=== PATIENT | male | born 1960 | race Caucasian/White ===

== ENCOUNTER → 2017-10-24 | Outpatient (CLI) | payer BC ==
--- NOTE | 2017-10-24 22:41 | MR ---
EXAMINATION TYPE: MR brain wo con DATE OF EXAM: 10/24/2017 COMPARISON: NONE HISTORY: Transient vision loss right eye TECHNIQUE: Multiplanar, multisequence imaging of the brain and brainstem is performed without IV cont rast. FINDINGS: Diffusion weighted images demonstrate no evidence of a recent infarct or other diffusion abnormality. There is no worrisome extra-axial fluid collection. Ventricles and sulci are felt within normal limit s in size for patient's age. There are scattered foci of T2 hyperintensity seen throughout the superf icial, deep, periventricular white matter. Approximately 40-50 scattered lesions are seen with larges t being confluent periventricular level. Lesions are nonspecific in appearance and distribution are m ost likely on basis of chronic chronic small vessel ischemic change in patient this age. Midline structures demonstrate normal morphology. The craniocervical junction appears within normal limits. Normal vascular flow voids are present. The visualized sinuses are clear and the globes are i ntact. IMPRESSION: 1. No evidence of a recent infarct. 2. Moderate nonspecific white matter changes most likely on basis of product of chronic small vessel ischemic change in patient of this age.
== END | disposition home or self-care (01) ==
LOC: RADMRIMAIN 16:36
PROVIDERS: ATTEND Family Medicine
DX: R90.89 Other abnormal findings on diagnostic imaging of central nervous system (principal); H53.121 Transient visual loss, right eye
CPT/HCPCS: 70551

== ENCOUNTER → 2019-10-16 | Outpatient (CLI) | payer BC ==
--- NOTE | 2019-10-16 13:23 | ECHOS ---
STRESS ECHOCARDIOGRAM LUMASON: Vial INDICATIONS: Chest pain. MEDICATIONS: BASELINE HEART RATE: 70 BASELINE BLOOD PRESSURE: 119/62 MAXIMUM HEART RATE: 162 MAXIMUM BLOOD PRESSURE: 175/70 85% MPHR: 138 100% MPHR: 162 METS: 11.9 MAXIMUM STAGE REACHED: 4 TOTAL EXERCISE TIME: 10:11 CLINICAL INFORMATION: Baseline rhythm is sinus mechanism, rate of 70, normal axis, poor R wave progression. Baseline blood pressure 119/62 mmHg. Patient exercised on a Hernandez protocol for 10 minutes 11 seconds achieving peak rate 162 beats per minute which is equal to 100% maximum predicted heart rate. Peak blood pressure 175/70 mmHg. Test was terminated due to significant fatigue. There was no chest pain. Electrocardiograph monitoring revealed no evidence of diagnostic ischemic ST deviation. FINDINGS: Baseline echocardiogram revealed normal wall thickness and motion. At peak exercise, there was small area of hypokinesis involving the apical and lateral inferior wall with normalization with improvement on the rest images. The rest of the segment showed normal wall thickening and motion. CONCLUSION: 1. Good exercise tolerance with normal electrocardiograph response to exercise. 2. Probably abnormal stress echocardiogram with small area of stress-induced ischemia involving the apical lateral inferior wall. MMODL / IJN: [id number] /
== END | disposition home or self-care (01) ==
LOC: RADNMMAIN 09:49
PROVIDERS: ATTEND Family Medicine
DX: R07.9 Chest pain, unspecified (principal)
CPT/HCPCS: 93351

== ENCOUNTER 2019-11-20 09:18 | Day surgery (SDC) | payer BC ==
[2019-11-18 10:55] VITALS: BMI 28.2
[~2019-11-20 09:18] MED LIST: ALPRAZolam 0.25 MG TAB PO PRN; ALPRAZolam 0.5 MG TAB PO PRN; ASPIRIN 325 MG TAB PO ONE; ATORVASTATIN 80 MG TAB PO ONE; NITROGLYCERIN SL TABS 0.4 MG TAB SUBLINGUAL PRN; SODIUM CHLORIDE 0.9% 1,000 ML in EMPTY BAG 1 BAG IV ONE
[2019-11-20] MEDS ORDERED: SODIUM CHLORIDE 0.9% 1,000 ML IV ONE (09:45)
[2019-11-20] MEDS ORDERED: LIDOCAINE 1% INJ 10MG/ML (20 ML MDV) ONE (10:03)
[2019-11-20] MEDS ORDERED: VERAPAMIL 2.5 MG/ML 2 ML AMP ONE (10:04)
[2019-11-20 10:06] VITALS: TEMP 98
[2019-11-20] MEDS ORDERED: HEPARIN SODIUM 1,000 UN/ML (10ML VL) ONE (10:12)
[2019-11-20] MEDS ORDERED: fentaNYL (PF) 50 MCG/ML 2 ML AMP ONE (10:12)
[2019-11-20] MEDS ORDERED: MIDAZOLAM 2 MG/2 ML VIAL IVP ONE (10:41)
[2019-11-20] MEDS ORDERED: LIDOCAINE 1% INJ 10MG/ML (20 ML MDV) SQ ONE (10:41)
[2019-11-20] MEDS ORDERED: fentaNYL (PF) 50 MCG/ML 2 ML AMP IVP ONE (10:41)
[2019-11-20] MEDS: VERAPAMIL SYRINGE (5 MG/10 ML) INTRAARTER ONE ×2 (10:45→10:53)
[2019-11-20] MEDS ORDERED: HEPARIN SODIUM 1,000 UN/ML (10ML VL) IV ONE (10:47)
[2019-11-20] MEDS ORDERED: IOPAMIDOL-370 125ML BTL INJ ONE (10:53)
[2019-11-20] MEDS ORDERED: RX INFO: IV CONTRAST WAS GIVEN 1 EACH MISC MISCELLANE PRN (11:21)
[2019-11-20] MEDS ORDERED: SODIUM CHLORIDE 0.9% 1,000 ML IV SCH (11:30)
[2019-11-20 14:33] VITALS: PULSE 72; RESP 16
--- NOTE | 2019-11-20 14:57 | CC ---
CARDIAC CATHETERIZATION REPORT DATE OF SERVICE: 11/20/2019 PERFORMING PHYSICIAN: Will Wood MD. PROCEDURE PERFORMED: 1. Selective right and left coronary angiogram. 2. Left heart catheterization. INDICATION: This is a 59-year-old gentleman who was experiencing symptoms of chest discomfort and underwent a stress test and that revealed apical ischemia. Because of that, a heart catheterization was advised. APPROACH: Right radial artery. COMPLICATION: None. LEVEL OF SEDATION: Moderate with sedation length of 16 minutes. PROCEDURE DESCRIPTION: After obtaining informed consent, the patient was brought to cardiac medical laboratory technical officer. The right radial artery was cannulated using micropuncture technique and a micropuncture wire passed easily. Then I placed a [place] sheath. I did give the patient 2 mg of verapamil IA and 10,000 units of heparin IV. Selective right and left coronary angiogram performed using JR4 and JL3.5 catheters. The left heart catheterization was performed using 5[place] pigtail catheter. The procedure was completed without any complication. Selective coronary angiogram. 1. The right coronary artery is a large caliber vessel and is dominant vessel. The RCA is angiographically normal. It distally bifurcates into PDA and PLV branches and both appeared to be angiographically normal. 2. The left main is angiographically normal it bifurcates into LCX and LAD. 3. The LCX is a large caliber vessel. It is a nondominant vessel. The LCX is angiographically normal in the midportion and gives rise into a large OM branch which appeared to be normal. 4. The LAD: The proximal LAD appeared to be angiographically normal. It gives rise into a large diagonal branch which seems to be normal. The mid LAD appeared to be normal and the LAD distally appeared to be normal as well. HEMODYNAMICS: The LVEDP was 4-8 mmHg without significant gradient across the aortic valve. CONCLUSION: 1. Normal coronary angiogram. 2. Normal left ventricular end-diastolic pressure. POSTPROCEDURE MANAGEMENT: Medical treatment and follow up with the patient. MMODL / IJN: [id number] /
--- NOTE | 2019-11-20 14:57 | LTR ---
DATE OF SERVICE: 11/20/[address] Lopez: Mr. William Dior underwent today heart catheterization and that revealed normal coronaries. I want to thank you for allowing us to participate in his care and please do not hesitate to call if you have any questions or concerns. Sincerely, HAKAN / THERESEN: [id number] /
[2019-11-20 15:23] VITALS: BP 114/72
== END 2019-11-20 15:39 | disposition home or self-care (01) ==
LOC: CATHCVL 09:18
PROVIDERS: ATTEND Internal Medicine Interventional Cardiology
DX: I20.0 Unstable angina (principal); E78.5 Hyperlipidemia, unspecified; Z79.899 Other long term (current) drug therapy; Z82.49 Family history of ischemic heart disease and other diseases of the circulatory system
CPT/HCPCS: 93458; C1769; C1894; J2250; J2001; J3010; J1644; Q9967

== ENCOUNTER → 2020-06-03 | Outpatient (CLI) | payer BC ==
[2020-06-03 09:24] LABS: Cholesterol 226 mg/dL (<200); HDL Cholesterol 50 mg/dL (40-60); LDL Cholesterol,Calculated 153 mg/dL (0-99); Triglycerides 117 mg/dL (<150)
== END | disposition home or self-care (01) ==
LOC: LABWHC1 07:08
PROVIDERS: ATTEND Nurse Practitioner Adult Health
DX: E78.5 Hyperlipidemia, unspecified (principal)
CPT/HCPCS: 36415; 80061